=== PATIENT | female | born 1950 | race Hispanic/Latino ===

== ENCOUNTER 2020-08-22 17:14 | Emergency (ER) | payer OTHER ==
[2020-08-22] MEDS ORDERED: FENTANYL CITR 100 MCG/2 ML ONE (18:21)
--- NOTE | 2020-08-22 18:35 | RAD REPORT ---
EXAM DESCRIPTION: RAD - Wrist Right 3 View - 08/22/2020 6:22 pm CLINICAL HISTORY: Right wrist pain status post injury FINDINGS: Comminuted markedly displaced fractures involve the distal radius and ulna with angulation present at the fracture site. Oblique lucency within the mid scaphoid probably prominent trabecula. A nondisplaced fracture is cons idered less likely and should be monitored on a follow-up exam No dislocation is seen
--- NOTE | 2020-08-22 18:40 | RAD REPORT ---
EXAM DESCRIPTION: RAD - Foot Right 3 View - 08/22/2020 6:22 pm CLINICAL HISTORY: Right foot pain status post injury FINDINGS: Bony density lies adjacent to the cuboid probably an ossicle. There appears to be an addit ional smaller bony density adjacent to the lateral aspect of cuboid which may represent a fracture. C linical correlation is needed see if patient has point tenderness this region to confirm this. No dislocation
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
--- NOTE | 2020-08-22 19:07 | RAD REPORT ---
EXAM DESCRIPTION: Sisi Single View08/22/2020 6:22 pm CLINICAL HISTORY: Chest pain COMPARISON: none FINDINGS: The lungs appear clear of acute infiltrate. The heart is borderline enlarged IMPRESSION: No acute abnormalities displayed
[2020-08-22] MEDS ORDERED: NA CHLORIDE 0.9% 1,000 ML ONE (20:03)
--- NOTE | 2020-08-22 21:05 | RAD REPORT ---
EXAM DESCRIPTION: RAD - Wrist Right 2 View - 08/22/2020 8:47 pm CLINICAL HISTORY: Radial fracture FINDINGS: Splint immobilizes comminuted fractures of the distal radius and ulna. Oblique lucency within the mid scaphoid probably prominent trabecula. A nondisplaced fracture can als o have this appearance. Followup is recommended
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
[2020-08-22 22:09] VITALS: TEMP 98.7; O2SAT 100
[2020-08-22 22:12] VITALS: BP 167/72
== END 2020-08-22 21:54 | disposition home or self-care (01) ==
LOC: ER 17:14
PROC: 2W3QX1Z Immobilization of Right Lower Leg using Splint (ICD-10-PCS; principal; 2020-08-22)
PROC: 2W3CX1Z Immobilization of Right Lower Arm using Splint (ICD-10-PCS; 2020-08-22)
DX: S92.214A Nondisplaced fracture of cuboid bone of right foot, initial encounter for closed fracture (principal); S62.101A Fracture of unspecified carpal bone, right wrist, initial encounter for closed fracture; S12.500A Unspecified displaced fracture of sixth cervical vertebra, initial encounter for closed fracture; S12.600A Unspecified displaced fracture of seventh cervical vertebra, initial encounter for closed fracture; M67.80 Other specified disorders of synovium and tendon, unspecified site; V43.52XA Car driver injured in collision with other type car in traffic accident, initial encounter
CPT/HCPCS: 70450; 72125; 71045; 73630; 73110; 73100; 96375; 96374; 99285; 29515; 29125; J3010; J7030